=== PATIENT | female | born 1960 | race Caucasian/White ===

== ENCOUNTER 2016-05-07 09:28 | Day surgery (SDC) | payer OTHER ==
[2016-05-07] MEDS ORDERED: DIPRIVAN 200 MG/20 ML IV ONE (10:00)
--- NOTE | 2016-05-07 14:26 | XRAY ---
Indication: Right L3-S1 MBB. Intraoperative fluoroscopy was provided for 9 seconds. Single digital spot image submitted for interpretation demonstrates 4 posterior spinal needles with the tips projecting adjacent to the right L3-S1 superior facets. Correlate with intraoperative findings/report.
[2016-05-07] MEDS ORDERED: Sensorcaine 0.25% 10 ML IJ ONE (15:22)
[2016-05-07] MEDS ORDERED: Lactated Ringers IV ONE (15:22)
[2016-05-07] MEDS ORDERED: Kenalog-40 IM ONE (15:22)
--- NOTE | 2016-05-07 16:36 | XRAY ---
9 seconds of fluoroscopy was used in surgery for a right MBB L3-S1.
== END 2016-05-07 13:00 | disposition home or self-care (01) ==
LOC: SDC-PAIN 09:28
PROVIDERS: ATTEND Pain Medicine Interventional Pain Medicine
DX: M46.1 Sacroiliitis, not elsewhere classified (principal); M51.36 Other intervertebral disc degeneration, lumbar region; M50.322 Other cervical disc degeneration at C5-C6 level; M70.60 Trochanteric bursitis, unspecified hip; G56.03 Carpal tunnel syndrome, bilateral upper limbs
CPT/HCPCS: 64493; 64494; 64495; 72020; 77003; J2704; J3301

== ENCOUNTER 2018-04-28 11:47 | Day surgery (SDC) | payer MEDICARE ==
[2018-04-28] MEDS ORDERED: Xylocaine 1% Vial 30 ML PF IJ ONE (11:48)
[2018-04-28] MEDS ORDERED: Depo-Medrol 40 MG/ML IM ONE (11:48)
[2018-04-28] MEDS ORDERED: DIPRIVAN 200 MG/20 ML IV ONE (11:48)
[2018-04-28] MEDS ORDERED: Marcaine 0.5% SDV 10 ML IJ ONE (11:48)
[2018-04-28] MEDS ORDERED: Ketamine HCl 50 MG/ML IV ONE (11:48)
[2018-04-28] MEDS ORDERED: TORAdol 30 mg Injection ONE (13:59)
[2018-04-28] MEDS ORDERED: Lactated Ringers 1,000 ML IV ONE (14:38)
--- NOTE | 2018-04-29 08:33 | XRAY ---
Indication: Left hip injection. Intraoperative fluoroscopy was provided for 18 seconds. 2 digital spot images submitted for interpretation demonstrates needle tip overlying the lateral femur neck. Small amount contrast injected for needle tip placement. Correlate with intraoperative findings/report.
--- NOTE | 2018-04-29 08:34 | XRAY ---
18 seconds fluoroscopy time in surgery for right hip injection.
--- NOTE | 2018-04-29 08:34 | XRAY ---
23 seconds fluoroscopy time in surgery for left hip injection.
--- NOTE | 2018-04-29 08:34 | XRAY ---
Indication: Right hip injection. Intraoperative fluoroscopy was provided for 18 seconds. 2 digital spot images submitted for interpretation demonstrates needle tip projecting over the lateral femur head. Small amount contrast injected for needle tip placement. Correlate with intraoperative findings/report.
== END 2018-04-28 14:06 | disposition home or self-care (01) ==
LOC: SDC-PAIN 11:47
PROVIDERS: ATTEND Psychiatry & Neurology Pain Medicine
DX: M25.551 Pain in right hip (principal); M16.0 Bilateral primary osteoarthritis of hip; I10 Essential (primary) hypertension; Z79.899 Other long term (current) drug therapy
CPT/HCPCS: 73501; 77002; J1030; J1885; J2001; J2704

== ENCOUNTER 2018-06-02 12:47 | Day surgery (SDC) | payer MEDICARE ==
[2018-06-02] MEDS ORDERED: DIPRIVAN 200 MG/20 ML IV ONE (12:48)
[2018-06-02] MEDS ORDERED: Depo-Medrol 40 MG/ML IM ONE (12:48)
[2018-06-02] MEDS ORDERED: Marcaine 0.5% SDV 10 ML IJ ONE (12:48)
[2018-06-02] MEDS ORDERED: LIDOCAINE HCL 2% 100 MG/5 ML IJ ONE (12:48)
--- NOTE | 2018-06-02 16:22 | XRAY ---
9 seconds fluoroscopy time in surgery for left hip injection.
--- NOTE | 2018-06-02 16:22 | XRAY ---
Indication: Left hip injection. Intraoperative fluoroscopy was provided for 9 seconds. Single digital spot image submitted for interpretation demonstrates needle tip projecting just lateral to the left greater trochanter. Small amount of contrast injected for needle tip placement. Correlate with intraoperative findings/report.
--- NOTE | 2018-06-02 16:22 | XRAY ---
Indication: Right hip injection. Intraoperative fluoroscopy was provided for 9 seconds. Single digital spot image submitted for interpretation demonstrates needle tip projecting just lateral to the right greater trochanter. Small amount of contrast injected for needle tip placement. Correlate with intraoperative findings/report.
--- NOTE | 2018-06-02 16:22 | XRAY ---
9 seconds fluoroscopy time in surgery for right hip injection.
[2018-06-02] MEDS ORDERED: Lactated Ringers 1,000 ML IV ONE (17:13)
== END 2018-06-02 15:00 | disposition home or self-care (01) ==
LOC: SDC-PAIN 12:47
PROVIDERS: ATTEND Psychiatry & Neurology Pain Medicine
DX: M70.61 Trochanteric bursitis, right hip (principal); M70.62 Trochanteric bursitis, left hip; Z79.899 Other long term (current) drug therapy; I10 Essential (primary) hypertension; F32.9 Major depressive disorder, single episode, unspecified; K21.9 Gastro-esophageal reflux disease without esophagitis
CPT/HCPCS: 20610; 73501; 77002; J1030; J2704; Q9966

== ENCOUNTER 2019-03-02 14:06 | Day surgery (SDC) | payer MEDICARE ==
[2019-03-02] MEDS ORDERED: Depo-Medrol 40 MG/ML IM ONE (14:07)
[2019-03-02] MEDS ORDERED: Xylocaine 1% Vial 30 ML PF IJ ONE (14:07)
[2019-03-02] MEDS ORDERED: Marcaine 0.5% SDV 10 ML IJ ONE (14:07)
--- NOTE | 2019-03-02 16:54 | XRAY ---
Indication: Right greater trochanter bursa injection. Intraoperative fluoroscopy was provided for 7 seconds. Single digital spot image submitted for interpretation demonstrates needle tip just lateral to the right greater trochanter. Small amount of contrast injected for needle tip placement. Correlate with intraoperative findings/report.
--- NOTE | 2019-03-02 16:59 | XRAY ---
7 seconds fluoroscopy time in surgery for right hip greater trochanter injection.
== END 2019-03-02 16:17 | disposition home or self-care (01) ==
LOC: SDC-PAIN 14:06
PROVIDERS: ATTEND Psychiatry & Neurology Pain Medicine
DX: M70.61 Trochanteric bursitis, right hip (principal); I10 Essential (primary) hypertension; F41.8 Other specified anxiety disorders; K21.9 Gastro-esophageal reflux disease without esophagitis
CPT/HCPCS: 20610; 73501; 77002; J1030; J2001; Q9966

== ENCOUNTER 2019-11-16 11:25 | Day surgery (SDC) | payer MEDICARE ==
[~2019-11-16 11:25] MED LIST: DIPRIVAN 200 MG/20 ML IV ONE; Ketamine HCl 50 MG/ML ONE
[2019-11-16] MEDS ORDERED: Depo-Medrol 40 MG/ML IM ONE (11:26)
[2019-11-16] MEDS ORDERED: BUPIVACAINE 0.5% VIAL IJ ONE (11:26)
[2019-11-16] MEDS ORDERED: Lactated Ringers 1,000 ML IV ONE (13:52)
--- NOTE | 2019-11-16 14:53 | XRAY ---
12 seconds fluoroscopy time in surgery for right greater trochanteric injection.
--- NOTE | 2019-11-16 14:56 | XRAY ---
Indication: Right greater trochanter bursa injection. Intraoperative fluoroscopy was provided for 12 seconds. Single digital spot image submitted for interpretation demonstrates needle tip just lateral to the right greater trochanter. Small amount of contrast injected for needle tip placement. Correlate with intraoperative findings/report.
== END 2019-11-16 13:23 | disposition home or self-care (01) ==
LOC: SDC-PAIN 11:25
PROVIDERS: ATTEND Psychiatry & Neurology Pain Medicine
DX: M70.61 Trochanteric bursitis, right hip (principal); I10 Essential (primary) hypertension; K21.9 Gastro-esophageal reflux disease without esophagitis; Z79.899 Other long term (current) drug therapy
CPT/HCPCS: 20610; 73501; 77002; J1030; J2704; Q9966

== ENCOUNTER 2020-04-12 10:48 | Day surgery (SDC) | payer MEDICARE ==
--- NOTE | 2020-04-05 07:56 | HP ---
DATE OF SURGERY: 04/12/2020 HISTORY OF PRESENT ILLNESS: The patient presented to the office with complaints of a recurrent ventral hernia. She had an epigastric hernia repaired back in 2019. Currently reports pain and bulging in the upper abdomen. It appears that she has a moderate ventral hernia recurrent. It looks like her hernia was repaired with Prolene back in 2019 and not mesh. PAST MEDICAL HISTORY: Hypertension, acid reflux, neuropathy, depression. PAST SURGICAL HISTORY: Left knee repair. Epigastric hernia repair. Tubal ligation. Appendectomy. Carpal tunnel left hand. ALLERGIES: MORPHINE. ACETAMINOPHEN. CODEINE. CYCLOBENZAPRINE. MELOXICAM. MEDICATIONS: Lisinopril, hydrocodone, omeprazole, gabapentin, Lexapro. FAMILY HISTORY: Heart disease, diabetes. SOCIAL HISTORY: Smokes half pack a day. Denies alcohol. REVIEW OF SYSTEMS: CONSTITUTIONAL: Denies fever or chills. CHEST: Denies shortness of breath. CVS: Denies chest pain. ABDOMEN: Reports ventral hernia and abdominal pain. Denies nausea, vomiting, diarrhea, constipation or rectal bleeding. INTEGUMENTARY: Negative. PHYSICAL EXAMINATION: GENERAL: No acute distress. CHEST: Nonlabored. No shortness of breath. CVS: Regular rate and rhythm. ABDOMEN: Soft, tender at ventral hernia superior to umbilicus. EXTREMITIES: No edema. NEUROLOGIC: Alert. PSYCHIATRIC: Appropriate. IMPRESSION: Recurrent ventral hernia. PLAN: Laparoscopic ventral hernia repair with mesh by Dr. John Martinez. As dictated by Debbie Werner NP.
[~2020-04-12 10:48] MED LIST changes: -DIPRIVAN 200 MG/20 ML IV ONE; -Ketamine HCl 50 MG/ML ONE; +Lactated Ringers 1,000 ML IV ONE; +Sensorcaine 0.25% 10 ML ONE
[2020-04-12] MEDS ORDERED: NITRO-BID 2% UD PACKETS TOP ONE (10:49)
[2020-04-12] MEDS ORDERED: CEFAZOLIN 2 GM-D5W BAG** 2 GM/50 ML ML IV SCH (11:00)
[2020-04-12] MEDS ORDERED: Lactated Ringers 1,000 ML IV SCH (11:00)
[2020-04-12] MEDS ORDERED: CEFAZOLIN 2 GM-D5W BAG** 2 GM/50 ML ML IV ONE (11:06)
[2020-04-12] MEDS ORDERED: Lactated Ringers 1,000 ML IV ONE (11:06)
[2020-04-12] MEDS ORDERED: Zemuron 100 MG/10 ML ONE ×2 (12:29→14:20)
[2020-04-12] MEDS ORDERED: SUBLIMAZE 250 MCG/5 ML ONE (12:29)
[2020-04-12] MEDS ORDERED: Versed 2 MG/2 ML Injection ONE (12:29)
[2020-04-12] MEDS ORDERED: DIPRIVAN 200 MG/20 ML IV ONE (12:29)
[2020-04-12] MEDS ORDERED: BRIDION 200MG/2ML IV ONE ×2 (12:34→14:31)
[2020-04-12] MEDS ORDERED: DILAUDID 2 MG INJECTION ONE ×2 (13:47→14:52)
[2020-04-12] MEDS ORDERED: TRANDATE 20 MG/4 ML SYRINGE IV ONE (13:49)
[2020-04-12] MEDS ORDERED: APRESOLINE 20 MG/ML INJ ONE (13:54)
[2020-04-12] MEDS ORDERED: Zofran 4 MG/2 ML VIAL ONE (14:31)
[2020-04-12] MEDS ORDERED: TORAdol 30 mg Injection ONE (14:51)
[2020-04-12] MEDS ORDERED: SUBLIMAZE 100 MCG/2 ML ONE (15:06)
[2020-04-12] MEDS ORDERED: Hydromorphone 1 mg/ml Injection ONE (15:14)
[2020-04-12 15:19] LABS: Appearance CLEAR (CLEAR); Bilirubin NEGATIVE (NEGATIVE); Blood NEGATIVE Ery/ul (0-5); Glucose NEGATIVE (NEGATIVE); Ketones NEGATIVE (NEGATIVE); Leukocyte Esterase NEGATIVE (NEGATIVE); Mucus SLIGHT /HPF (NEGATIVE); Nitrite NEGATIVE (NEGATIVE); Protein,Urine Dip NEGATIVE (Negative); Specific Gravity 1.019 (1.005-1.025); Urobilinogen NEGATIVE mg/dL (0-1)
--- NOTE | 2020-04-12 15:27 | OP ---
SURGERY DATE/TIME: 04/12/2020 1311 PREOPERATIVE DIAGNOSIS: Recurrent ventral hernia. POSTOPERATIVE DIAGNOSIS: Recurrent ventral hernia. PROCEDURE: Laparoscopic repair of ventral recurrent hernia with some incarcerated omentum with laparoscopically placed mesh. SURGEON: John Martinez M.D. ANESTHESIA: General. COMPLICATIONS: None. CONDITION: Stable. INDICATION: A 59 year-old has ventral abdominal hernia, had a primary repair some time ago about two years ago and has a recurrence. Laparoscopic approach this time was discussed. DESCRIPTION OF PROCEDURE: She was taken to surgery. General anesthetic. Routine prep and drape. The hernia was in the upper mid abdomen left upper quadrant. Veress needle inserted. Insufflating pressure 14. A 5 port introduced. Good visualization. No suggestion of any issues from the Veress. Two - 5's were placed down the left side about an inch above the colon. A 5 was placed on the contralateral side just above the colon in the right lower quadrant pain. The peritoneal hernia sac was dissected out and removed. It was about 90 to 95% of the sac was removed. Fascial defect closed with two sutures of #0 Prolene. The fascial defect was 1.5 x 1.0 inch and it was closed transversely. It was punctured in the mid portion of the fascia at the center of defect and the 11.4 cm circular balloon mesh was pulled up into place. It overlapped the hernia defect very nicely throughout and it was centered absolutely on the center of the defect. The left superior lateral margin was tacked first and coming down the left side to the bottom and then coming over to the right side was tacked for 180 degrees. Paramedians on the left and right were placed and then some more central ones especially at 12:00 and 6:00 away from the defect area. The tacking was excellent around the parameter. The mesh was opposed to the abdominal wall. It was flat. The abdominal pressure had been relaxed just slightly. Hole closure device was used for the 12 port which was the left upper quadrant one which a 5 had been exchanged to a 12 in order to bring the mesh in and to take the peritoneal sac and portion of omentum out. There had been incarcerated omentum initially that was taken this was closed with 0 Vicryl. The ventral hernia defect itself had been closed with two sutures of 0 Prolene. Skin closed with 4-0 Vicryl and Steri-Strips. Abdominal binder applied. The patient tolerated the procedure satisfactorily.
[2020-04-12] MEDS ORDERED: Compazine 10 MG/2 ML ONE (16:21)
[2020-04-12] MEDS ORDERED: Sodium Chloride 0.9% 1000 ML 1,000 ML IV SCH (16:45)
[2020-04-12] MEDS ORDERED: PHARMACY DOSING REQUIRED: DILAUDID PCA IV STA (17:00)
[2020-04-12] MEDS: DILAUDID 1 MG/1ML PCA IV PRN (17:01)
[2020-04-12] MEDS ORDERED: Ventolin Hfa MDI IH PRN (17:13)
[2020-04-12] MEDS ORDERED: VENTOLIN COMMON CANISTER IH PRN (17:14)
[2020-04-12 17:37] LABS: INFLUENZA A NEGATIVE (NEGATIVE); INFLUENZA B NEGATIVE (NEGATIVE); RESPIRATORY SYNCTIAL VIRUS NEGATIVE (Negative)
[2020-04-12] MEDS: hydroDIURIL 25 MG PO SCH (20:43)
[2020-04-12] MEDS: Zestril 10 MG PO SCH (20:43)
[2020-04-12] MEDS: NORCO 7.5/325 MG TAB PO PRN (21:31)
[2020-04-12] MEDS: Protonix 40MG Tablet PO SCH (21:31)
[2020-04-12] MEDS: Lexapro 10 MG PO SCH (21:32)
[2020-04-12] MEDS ORDERED: NEURONTIN 300 MG PO SCH (22:00)
[2020-04-13] MEDS: NORCO 7.5/325 MG TAB PO PRN ×2 (03:08→08:58)
[2020-04-13] MEDS: DILAUDID 1 MG/1ML PCA IV PRN ×2 (05:44→14:05)
[2020-04-13 07:44] VITALS: PULSE 70
[2020-04-13] MEDS: hydroDIURIL 25 MG PO SCH (08:41)
[2020-04-13] MEDS: Zestril 10 MG PO SCH (08:42)
[2020-04-13] MEDS: Protonix 40MG Tablet PO SCH (08:42)
[2020-04-13] MEDS: Lexapro 10 MG PO SCH (08:42)
[2020-04-13] MEDS ORDERED: NON-FORMULARY ITEM (Lisinopril/Hydrochlorothiazide [Lisinopril-Hctz 10-12.5 Mg Tab] 1 TAB) PO SCH (10:00)
[2020-04-13 11:33] VITALS: BP 117/62; O2SAT 92
== END 2020-04-13 13:58 | disposition home or self-care (01) ==
LOC: SDC 10:48 → MED SURG 16:25 → SDC 04-13 13:58
PROVIDERS: ATTEND Surgery
DX: K43.0 Incisional hernia with obstruction, without gangrene (principal)
CPT/HCPCS: 0241U; 49657; 81001; 87086; C1781; J0360; J0690; J1170; J1885; J2250; J2405; J2704; J3010; L0625; A9270-GY

== ENCOUNTER 2020-09-05 13:32 | Day surgery (SDC) | payer MEDICARE ==
[2020-09-05] MEDS ORDERED: Xylocaine 1% Vial 30 ML PF IJ ONE (13:33)
[2020-09-05] MEDS ORDERED: BUPIVACAINE 0.5% VIAL IJ ONE (13:33)
[2020-09-05] MEDS ORDERED: Depo-Medrol 40 MG/ML IM ONE (13:33)
[2020-09-05] MEDS ORDERED: DIPRIVAN 200 MG/20 ML IV ONE (14:49)
--- NOTE | 2020-09-05 15:26 | XRAY ---
Indication: Right hip and bursa injections. Intraoperative fluoroscopy provided for 19 seconds. 2 digital spot images submitted for interpretation demonstrates needle tips projecting just lateral to the right femur neck and greater trochanter. Small amount of contrast injected for both needle tip placement. Correlate with intraoperative findings/report.
[2020-09-05] MEDS ORDERED: Lactated Ringers 1,000 ML IV ONE (15:56)
--- NOTE | 2020-09-05 16:45 | XRAY ---
19 seconds fluoroscopy time in surgery for injections of the intra-articular space and the greater trochanter of the right hip.
== END 2020-09-05 15:15 | disposition home or self-care (01) ==
LOC: SDC-PAIN 13:32
PROVIDERS: ATTEND Psychiatry & Neurology Pain Medicine
DX: M16.11 Unilateral primary osteoarthritis, right hip (principal); M70.61 Trochanteric bursitis, right hip; G56.02 Carpal tunnel syndrome, left upper limb; Z79.899 Other long term (current) drug therapy
CPT/HCPCS: 20526; 20610; 73502; 77002; J1030; J2001; J2704

== ENCOUNTER 2021-01-02 12:56 | Day surgery (SDC) | payer MEDICARE ==
[2021-01-02] MEDS ORDERED: Depo-Medrol 40 MG/ML IM ONE (12:57)
[2021-01-02] MEDS ORDERED: BUPIVACAINE 0.5% VIAL IJ ONE (12:57)
[2021-01-02] MEDS ORDERED: DIPRIVAN 200 MG/20 ML IV ONE (12:57)
--- NOTE | 2021-01-02 15:18 | XRAY ---
30 seconds fluoroscopy time in surgery for intra-articular and greater trochanteric bursa injections of the right hip.
--- NOTE | 2021-01-02 15:25 | XRAY ---
Indication: Right hip injection. Intraoperative fluoroscopy provided for 30 seconds. 2 digital spot image submitted for interpretation demonstrates needle tips lateral to the right femur neck and greater trochanter. Small amount of contrast injected for both needle tip placement. Correlate with intraoperative findings/report.
[2021-01-02] MEDS ORDERED: Lactated Ringers 1,000 ML IV ONE (16:28)
== END 2021-01-02 15:07 | disposition home or self-care (01) ==
LOC: SDC-PAIN 12:56
PROVIDERS: ATTEND Psychiatry & Neurology Pain Medicine
DX: M16.11 Unilateral primary osteoarthritis, right hip (principal); M70.61 Trochanteric bursitis, right hip; Z79.891 Long term (current) use of opiate analgesic; Z72.0 Tobacco use
CPT/HCPCS: 20610; 73502; 77002; J1030; J2704; Q9966

== ENCOUNTER 2023-04-29 14:14 | Day surgery (SDC) | payer MEDICARE ==
[2023-04-29] MEDS ORDERED: Depo-Medrol 40 MG/ML IM ONE (14:15)
[2023-04-29] MEDS ORDERED: BUPIVACAINE 0.5% VIAL IJ ONE (14:15)
[2023-04-29] MEDS ORDERED: DIPRIVAN 200 MG/20 ML IV ONE (17:09)
[2023-04-29] MEDS ORDERED: Lactated Ringers 1,000 ML IV ONE (18:16)
--- NOTE | 2023-04-29 19:17 | XRAY ---
Indication: Right hip and greater trochanter bursa injection. Intraoperative fluoroscopy provided for 18 seconds. 2 digital spot image submitted for interpretation demonstrates needle tip projecting lateral to right femur neck. Second needle tip lateral to greater trochanter. Small amount of contrast injected for needle tip placement. Correlate with intraoperative findings/report.
--- NOTE | 2023-04-30 09:19 | XRAY ---
18 seconds of fluoroscopy was used in surgery for a right intra-articular hip and greater trochanteric bursa injection.
== END 2023-04-29 17:38 | disposition home or self-care (01) ==
LOC: SDC-PAIN 14:14
PROVIDERS: ATTEND Psychiatry & Neurology Pain Medicine
DX: M16.11 Unilateral primary osteoarthritis, right hip (principal)
CPT/HCPCS: 20610; 73502; 77002; J1030; J2704; Q9966

== ENCOUNTER 2024-06-01 10:53 | Day surgery (SDC) | payer MEDICARE ==
[2024-06-01] MEDS ORDERED: BUPIVACAINE 0.5% VIAL IJ ONE (10:54)
[2024-06-01] MEDS ORDERED: Depo-Medrol 40 MG/ML IM ONE (10:54)
[2024-06-01] MEDS ORDERED: propofoL IV ONE (12:57)
[2024-06-01] MEDS ORDERED: DILAUDID 0.5 MG/0.5 ML SYRINGE ONE (13:28)
--- NOTE | 2024-06-01 16:35 | XRAY ---
Indication: Bilateral greater trochanter bursa injection. Intraoperative fluoroscopy provided for 19 seconds. 3 digital spot image submitted for interpretation demonstrates needle tips projecting lateral to left and right greater trochanters. Small amount of contrast injected for needle tip placement. Correlate with intraoperative findings/report.
--- NOTE | 2024-06-01 16:46 | XRAY ---
19 seconds of fluoroscopy was used in surgery for a bilateral greater trochanteric bursa injection.
== END 2024-06-01 13:56 | disposition home or self-care (01) ==
LOC: SDC-PAIN 10:53
PROVIDERS: ATTEND Psychiatry & Neurology Pain Medicine
DX: M70.62 Trochanteric bursitis, left hip (principal); M70.61 Trochanteric bursitis, right hip
CPT/HCPCS: 20610; 73521; 77002; J1171; J2704; Q9966